=== PATIENT | female | born 1935 | race American Indian/Alaskan Native ===

== ENCOUNTER 2019-04-29 09:55 | Outpatient (CLI) | payer MEDICARE ==
--- NOTE | 2019-04-29 11:04 | Ultrasound Report ---
LIMITED RUQ ABDOMINAL ULTRASOUND INDICATION: INTRA ABD AND PELVIC SWELLING. COMPARISON: No relevant prior imaging study available. FINDINGS: Pancreas: Visualized portions show no significant abnormality. Abdominal Aorta: No significant abnormality. IVC: No significant abnormality. Liver: The liver measures 12.2 cm in length. No significant abnormality. Normal hepatopedal blood fl ow in the main portal vein. Gallbladder: Multiple small shadowing gallstones are identified in the gallbladder. No abnormal diste ntion, wall thickening or surrounding fluid.. Bile ducts: No significant abnormality. Common bile duct measures 5.1 mm. Right kidney: No significant abnormality visualized.. Free fluid: None. Additional Findings: None. IMPRESSION: Cholelithiasis.. Signer Name: Wally June Jr, MD Signed: 04/29/2019 11:00 AM Workstation Name: [id number]
== END 2019-04-29 09:56 | disposition home or self-care (01) ==
LOC: SPVWC 09:55
PROVIDERS: ATTEND Internal Medicine
DX: K80.20 Calculus of gallbladder without cholecystitis without obstruction (principal)
CPT/HCPCS: 76705